=== PATIENT | male | born 1960 | race African-American/Black ===

== ENCOUNTER 2018-04-19 21:30 | Emergency (ER) | payer OTHER ==
[~2018-04-19] VITALS: Ht 180.3 cm; Wt 121.1 kg
--- NOTE | ~2018-04-19 | EKG ---
[address] [address] ELECTROCARDIOGRAM REPORT Name: JOON RODAS Room #: DEP WILI Segal#: [id number] Admission: 04/19/18 Attend Phys: Discharge: 04/20/18 Date of : 60 Report #: [id number] THIS REPORT FOR: //name// [facility] ED Test Date: 2018-04-19 Test Time: 21:40:55 Pat Name: MYAEDD ADRIANNA Department: Room: Gender: Office System Analyst: JLAMBELIA : 1960 Requested By: Luis Mistry Order Number: [id number] MD: Jaun Freed Measurements Intervals [place] Rate: 76 P: 59 MN: 176 QRS: 53 QRSD: 103 T: 45 QT: 403 QTc: 454 Interpretive Statements Sinus rhythm Baseline wander in lead(s) V1,V2 No previous ECG available for comparison Electronically Signed On 04-20-2018 16:57:00 CDT by Jaun Freed [email or web address] <ELECTRONICALLY SIGNED> By: Jaun Freed MD 04/20/18 1657 2140 2140 Jaun Fered MD /CHELA
[2018-04-19] MEDS ORDERED: GLIMEPIRIDE4 MG PO (21:39)
[2018-04-19] MEDS ORDERED: PERCOCET 10-321 EACH PO (21:39)
[2018-04-19] MEDS ORDERED: VOLTAREN GEL 1100 G2 TOP (21:40)
[2018-04-19] MEDS ORDERED: LIDOCAINE1 EACH TOP (21:41)
[2018-04-19] MEDS ORDERED: CLONAZEPAM 1 MG1 M1 PO (21:41)
[2018-04-19] MEDS ORDERED: OXYCONTIN10 M1 PO (21:42)
[2018-04-19] MEDS ORDERED: CLEOCIN HCL150 MG PO (21:43)
[2018-04-19] MEDS ORDERED: PRAVASTATIN SOD20 MG PO (21:43)
[2018-04-19] MEDS ORDERED: JANUMET XR 1001 EACH PO (21:44)
[2018-04-19] MEDS ORDERED: NEURONTIN 300300 M1 PO (21:44)
[2018-04-19] MEDS ORDERED: LOPRESSOR50 PO (21:45)
[2018-04-19] MEDS ORDERED: MOBIC15 MG PO (21:45)
[2018-04-19] MEDS ORDERED: HYDRALAZINE 2525 M1 PO (21:45)
[2018-04-19] MEDS ORDERED: FLONASE 0.05%50 MCG NASAL (21:45)
[2018-04-19] MEDS ORDERED: JANUVIA 50 MG T50 MG PO (21:46)
[2018-04-19] MEDS ORDERED: PRINIVIL20 MG PO (21:46)
[2018-04-19] MEDS ORDERED: NIACIN50 MG PO (21:46)
[2018-04-19] MEDS ORDERED: CIALIS5 MG PO (21:48)
[2018-04-19] MEDS ORDERED: ALBUTEROL2.5 MG/31 INH (21:49)
[2018-04-19 22:02] LABS: HEMATOCRIT 37.5 % (42.0-52.0); MCH 29.3 pg (26.0-34.0); MCHC 34.6 g/dL (28.0-37.0); MCV 84.6 fL (80.0-100.0); RBC 4.44 mil/uL (4.50-6.00); RDW 13.9 % (10.5-14.5); WBC 10.3 thou/uL (4.0-11.0)
[2018-04-19 22:21] LABS: ANION GAP 6 mmol/L (7-16); BUN 18 mg/dL (7-18); CALCIUM 9.7 mg/dL (8.5-10.1); CHLORIDE 100 mmol/L (98-107); CO2 31 mmol/L (21-32); CREATININE 1.3 mg/dL (0.7-1.3); GLUCOSE 166 mg/dL (74-106); POTASSIUM 4.2 mmol/L (3.5-5.1); SODIUM 137 mmol/L (136-145)
[2018-04-19 22:26] LABS: ALBUMIN 3.8 g/dL (3.4-5.0); SGOT 16 U/L (15-37); SGPT 28 U/L (30-65); TOTAL BILIRUBIN 0.3 mg/dL (<0.1-1.0); TOTAL PROTEIN 7.8 g/dL (6.4-8.2); TROPONIN-I <0.06 ng/mL (<0.06)
[2018-04-19 23:21] LABS: URINE BILIRUBIN NEGATIVE (Negative); URINE BLOOD NEGATIVE (Negative); URINE CLARITY CLEAR; URINE COLOR YELLOW; URINE GLUCOSE-RANDOM* NEGATIVE (Negative); URINE KETONES NEGATIVE (Negative); URINE LEUKOCYTES-REFLEX NEGATIVE (Negative); URINE NITRITE-REFLEX NEGATIVE (Negative); URINE PROTEIN (DIPSTICK) NEGATIVE (Negative); URINE UROBILINOGEN 0.2 E.U./dl (0.2-1.0)
[2018-04-19] MEDS ORDERED: PROTONIX40 MG PO (23:40)
[2018-04-19] MEDS ORDERED: SENNA S TABLET1 EACH PO (23:54)
[2018-04-19 23:55] VITALS: BP 137/89
== END 2018-04-20 00:30 | disposition home or self-care (01) ==
LOC: ER 21:30
PROVIDERS: Emergency Medicine
DX: K20.9 Esophagitis, unspecified (principal); E11.9 Type 2 diabetes mellitus without complications; I10 Essential (primary) hypertension; Z88.5 Allergy status to narcotic agent